=== PATIENT | female | born 1980 | race Caucasian/White ===

== ENCOUNTER 2020-03-18 17:09 | Emergency (ER) | payer OTHER ==
[~2020-03-18] VITALS: Ht 162.6 cm; Wt 52.2 kg
[2020-03-18 17:33] VITALS: BP 124/75
--- NOTE | 2020-03-18 19:11 | NUR ---
Patient discharged to home in stable condition. Written and verbal after care instructions given. Patient verbalizes understanding of instruction. Pt ambulatory with a steady gait
== END 2020-03-18 19:13 | disposition home or self-care (01) ==
LOC: ER 17:10
DX: R05 Cough (principal); R50.9 Fever, unspecified; R11.2 Nausea with vomiting, unspecified
CPT/HCPCS: 71045-TC

== ENCOUNTER 2020-07-21 16:01 | Emergency (ER) | payer OTHER ==
[~2020-07-21] VITALS: Ht 162.6 cm; Wt 54.0 kg
--- NOTE | 2020-07-21 16:01 | NUR ---
PT BIB SELF C/O GENERALIZED WEAKNESS, COUGH. PT IS AAOX4, NOT IN RESPIRATORY DISTRESS, V/S STABLE, KEPT RESTED AND COMFORTABLE. WILL CONTINUE TO MONITOR.
[2020-07-21] MEDS ORDERED: ACETAMINOPHEN 325 MG TABLET PO ONE (17:00)
[2020-07-21] MEDS ORDERED: ACETAMINOPHEN ES 500 MG TABLET ONE (17:01)
--- NOTE | 2020-07-21 17:12 | NUR ---
PT REFUSED XRAY AND SHE WANTS TO GO HOME. JOSEPH RODRIGUEZ.
--- NOTE | 2020-07-21 17:15 | NUR ---
COVID SPECIMEN OBTAINED AND SENT TO LAB.
--- NOTE | 2020-07-21 17:20 | NUR ---
Patient discharged to home in stable condition. Written and verbal after care instructions given. Patient verbalizes understanding of instruction.
[2020-07-21 17:21] VITALS: BP 121/58
--- NOTE | 2020-07-22 12:55 | NUR ---
Negative COVID PCR results
== END 2020-07-21 17:21 | disposition home or self-care (01) ==
LOC: ER 16:07
DX: B34.9 Viral infection, unspecified (principal); R05 Cough; Z20.828 Contact with and (suspected) exposure to other viral communicable diseases
CPT/HCPCS: 99283; C9803; U0003

== ENCOUNTER 2022-01-04 15:47 | Emergency (ER) | payer MEDICAID, OTHER ==
[~2022-01-04] VITALS: Ht 162.6 cm; Wt 49.9 kg
[2022-01-04] MEDS ORDERED: ONDANSETRON HCL/PF 4 MG/2 ML VIAL ONE (16:57)
[2022-01-04] MEDS ORDERED: ONDANSETRON HCL/PF 4 MG/2 ML VIAL IVP ONE (17:00)
[2022-01-04] MEDS ORDERED: IV NS 0.9% 1,000 ML BAG IV ONE (17:00)
--- NOTE | 2022-01-04 17:21 | NUR ---
pt came in c/o cough,fever, congestion, and body ache. pt is a/ox4.pt placed on monitor.
[2022-01-04 17:30] LABS: BASOPHILS % (AUTO) 0.3 % (0.0-2.0); EOSINOPHILS % (AUTO) 0.9 % (0.0-6.0); HEMATOCRIT 40 % (33-45); HEMOGLOBIN 13.3 g/dL (11.5-14.8); LYMPHOCYTES # (AUTO) 1.5 K/uL (0.8-4.8); LYMPHOCYTES % (AUTO) 23.9 % (20.0-44.0); MEAN CORPUSCULAR HGB CONC 33 g/dl (31.0-36.0); MEAN CORPUSCULAR VOLUME 91 fL (82-100); MONOCYTES # (AUTO) 0.3 K/uL (0.1-1.30); MONOCYTES % (AUTO) 5.4 % (2.0-12.0); NEUTROPHILS # (AUTO) 4.3 K/uL (1.8-8.9); NEUTROPHILS % (AUTO) 69.5 % (43.0-81.0); PLATELET COUNT (AUTO) 251 K/uL (150-450); RED BLOOD CELL COUNT(AUTO) 4.39 MIL/uL (4.0-5.2); WHITE BLOOD COUNT (AUTO) 6.2 K/uL (4.3-11.0)
[2022-01-04 17:32] LABS: CALCIUM, SERUM 8.8 mg/dL (8.5-10.1); CREATININE 0.5 mg/dL (0.6-1.3); POTASSIUM 4.2 mmol/L (3.5-5.1)
[2022-01-04 17:38] LABS: ALBUMIN 4.2 g/dL (3.4-5.0); BILIRUBIN,TOTAL 0.4 mg/dL (0.2-1.0); TOTAL PROTEIN, SERUM 7.7 g/dL (6.4-8.2)
[2022-01-04] MEDS ORDERED: KETOROLAC TROMETHAMINE INJ 30 MG/ML VIAL ONE (17:47)
[2022-01-04] MEDS ORDERED: KETOROLAC TROMETHAMINE INJ 30 MG/ML VIAL IV ONE (18:00)
[2022-01-04] MEDS ORDERED: MAG HYDROX/AL HYDROX/SIMETH 30 ML UDC ONE (18:21)
[2022-01-04] MEDS ORDERED: LIDOCAINE VISCOUS 2% UD 15 ML UDC ONE (18:22)
[2022-01-04] MEDS ORDERED: LIDOCAINE VISCOUS 2% UD 15 ML UDC MM ONE (18:30)
[2022-01-04] MEDS ORDERED: MAG HYDROX/AL HYDROX/SIMETH 30 ML UDC PO ONE (18:30)
--- NOTE | 2022-01-04 19:03 | NUR ---
PT LAYING IN BED COMFORTABLY. NEEDS MET
[2022-01-04] MEDS ORDERED: BENZ-13 PO (19:25)
--- NOTE | 2022-01-04 19:27 | NUR ---
PT AMBULATED TO RESTROOM
--- NOTE | 2022-01-04 19:45 | NUR ---
URINE SAMPLE OBTAINED AND SENT TO LAB
--- NOTE | 2022-01-04 20:33 | NUR ---
[facility] TAKEN TO [facility]. DENIES .
[2022-01-04 20:48] LABS: BILIRUBIN,URINE NEGATIVE (NEGATIVE); COLOR,URINE RED (YELLOW); LEUKOCYTE ESTERASE ,URINE TRACE (NEGATIVE); NITRITE, URINE NEGATIVE (NEGATIVE); PH,URINE 6.5 (5.0-8.0); PROTEIN,URINE 100 mg/dl (NEGATIVE); UGLUCOSE NEGATIVE (NEGATIVE); UROBILINOGEN,URINE 0.2 EU/dL (0.2)
[2022-01-04 20:49] LABS: BACTERIA,URINE 1+ /HPF (None Seen); RBC,URINE TOO NUMEROUS TO COUN /HPF (0-2); SQUAMOUS EPITHELIAL CELL,UR None Seen /HPF (None Seen)
--- NOTE | 2022-01-04 20:50 | NUR ---
PT BACK FROM CT
[2022-01-04] MEDS ORDERED: IBUP-1953 PO (21:47)
--- NOTE | 2022-01-04 22:02 | NUR ---
Patient discharged to home in stable condition. Written and verbal after care instructions given. Patient verbalizes understanding of instruction.
[2022-01-04 22:04] VITALS: BP 99/68
== END 2022-01-04 22:05 | disposition home or self-care (01) ==
LOC: ER 15:58
DX: A08.4 Viral intestinal infection, unspecified (principal); R05.9 Cough, unspecified; Z20.822 Contact with and (suspected) exposure to COVID-19; I51.7 Cardiomegaly
CPT/HCPCS: 36415; 71045; 74176; 80053; 81001; 84703; 85025; 87426; 87804; 96361; 96374; 96375; 99285; C9803; J1885; J2405; J7030